=== PATIENT | female | born 1960 | race Caucasian/White ===

== ENCOUNTER 2018-09-19 08:28 | Day surgery (SDC) | payer OTHER ==
[2018-09-19] MEDS ORDERED: LACTATED RINGER'S 1,000 ML IV* (10:00)
[2018-09-19] MEDS ORDERED: CEFAZOLIN 2 GM/50 ML (PMX) 50 ML IVPB (10:00)
[2018-09-19] MEDS ORDERED: BUPIVACAINE 0.5% (SDV) 30 ML INJ (10:32)
[2018-09-19] MEDS ORDERED: LIDOCAINE 1% (MPF) 30 ML INJ (10:32)
[2018-09-19] MEDS ORDERED: MIDAZOLAM 1 MG/ML 2 ML INJ (10:39)
[2018-09-19] MEDS ORDERED: LIDOCAINE 2% (SDV) 5 ML INJ (10:39)
[2018-09-19] MEDS ORDERED: ROCURONIUM 50 MG INJ (10:39)
[2018-09-19] MEDS ORDERED: PROPOFOL 20 ML (10:39)
[2018-09-19] MEDS ORDERED: DEXAMETHASONE 4 MG/ML 5 ML INJ (10:43)
[2018-09-19] MEDS ORDERED: ROPIVACAINE 0.5 % 30 ML VIAL (10:43)
[2018-09-19] MEDS ORDERED: CEFAZOLIN 1 GM INJ (11:36)
[2018-09-19] MEDS ORDERED: ONDANSETRON 4 MG INJ (11:37)
[2018-09-19] MEDS: POLYMYXIN/BACITRACIN 1L IRRIG (12:00)
[2018-09-19] MEDS ORDERED: morphine 10 MG INJ (12:48)
[2018-09-19] MEDS ORDERED: KETOROLAC 30 MG INJ (12:51)
[2018-09-19] MEDS ORDERED: DIPHENHYDRAMINE 50 MG INJ (13:08)
[2018-09-19] MEDS: HYDROmorphONE 1 MG/5 ML IV SYRINGE IV ×3 (13:17→13:40)
[2018-09-19] MEDS ORDERED: DIPHENHYDRAMINE 50 MG INJ IV (13:30)
[2018-09-19] MEDS ORDERED: HYDROCODONE/APAP (10/325) TAB PO (13:30)
== END 2018-09-19 15:01 | disposition home or self-care (01) ==
LOC: SDS 08:28
DX: S52.571D Other intraarticular fracture of lower end of right radius, subsequent encounter for closed fracture with routine healing (principal); X58.XXXD Exposure to other specified factors, subsequent encounter; G56.01 Carpal tunnel syndrome, right upper limb
CPT/HCPCS: 64721; 73110-RT